=== PATIENT | male | born 1990 | race American Indian/Alaskan Native ===

== ENCOUNTER 2022-04-04 05:42 | Emergency (ER) | payer SELFPAY ==
[2022-04-04 06:08] VITALS: BP 119/76
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
== END 2022-04-04 09:22 | disposition home or self-care (01) ==
LOC: ED 05:42
DX: S59.911A Unspecified injury of right forearm, initial encounter (principal); Z79.899 Other long term (current) drug therapy; V89.2XXA Person injured in unspecified motor-vehicle accident, traffic, initial encounter; Y93.89 Activity, other specified; Y92.488 Other paved roadways as the place of occurrence of the external cause; Y99.8 Other external cause status
CPT/HCPCS: 99283